=== PATIENT | male | born 1955 | race Caucasian/White ===

== ENCOUNTER 2020-04-23 12:39 | Inpatient (IN) | payer OTHER, MEDICARE ==
[~2020-04-23] VITALS: Ht 185.4 cm; Wt 140.3 kg
[2020-04-23 09:35] LABS: BASOPHILS PERCENT AUTO 1 % (0-2); EOSINOPHILS ABSOLUTE AUTO 0.37 K/mm3 (0.00-0.68); EOSINOPHILS PERCENT AUTO 4 % (0-6); Hematocrit 51.3 % (37.0-53.0); Hemoglobin 16.7 g/dL (13.5-17.5); IMMATURE GRAN ABSOLUTE AUTO 0.04 K/mm3 (0.00-0.10); IMMATURE GRAN PERCENT AUTO 0 % (0-1); LYMPHOCYTES PERCENT AUTO 18 % (21-46); MONOCYTES ABSOLUTE AUTO 1.18 K/mm3 (0.16-1.47); MONOCYTES PERCENT AUTO 11 % (4-13); Mean Corpuscular HGB 28.9 pg (26.0-34.0); Mean Corpuscular HGB Conc 32.6 g/dL (31.5-36.5); Mean Corpuscular Volume 89 fL (80-100); Mean Platelet Volume 9.4 fL (9.1-12.4); NEUTROPHILS ABSOLUTE AUTO 6.85 K/mm3 (1.96-9.15); NEUTROPHILS PERCENT AUTO 66 % (41-73); Platelet Count 351 K/mm3 (150-400); RDW Coefficient Variation 13.7 % (11.7-14.2); RDW Standard Deviation 44.3 fL (35.1-46.3); Red Blood Cell Count 5.78 M/mm3 (4.30-5.90); White Blood Cell Count 10.44 K/mm3 (4.00-11.30)
[2020-04-23 09:53] LABS: International Normalized Ratio 1.28; Prothrombin Time Results 13.5 Sec (9.7-11.5)
[2020-04-23 10:00] LABS: Albumin, Blood 4.2 g/dL (3.4-5.0); Albumin/Globulin Ratio 1.1 (0.8-1.8); Bilirubin, Total 0.7 mg/dL (0.1-1.0); Calcium, Blood 9.2 mg/dL (8.5-10.1); Creatinine, Blood 1.28 mg/dL (0.60-1.20); Globulin, Blood 3.8 g/dL (2.2-4.0)
[2020-04-23 10:39] LABS: Influenza A, PCR NEGATIVE (NEGATIVE); Influenza B, PCR NEGATIVE (NEGATIVE); Resp Syncytial Virus, PCR NEGATIVE (NEGATIVE); SARS-Cov-2 (COVID-19) PCR, MMC NEGATIVE (NEGATIVE)
[~2020-04-23 12:39] MED LIST: ALBU90OI INH; Crestor20 MG PO; DILTIAZEM 24HR240 M4 PO; HYDCHL25 PO; LEVSOD150 PO; OMEP20ER PO; SYMBICORT 16010.2 GM INH; TIOT18 INH; VITAMIN D31000 UNI1 PO; XARELTO20 MG PO
[2020-04-23 14:03] LABS: Magnesium, Blood 2.2 mg/dL (1.6-2.4); Phosphorus, Blood 3.2 mg/dL (2.5-4.9)
[2020-04-24 03:59] LABS: BASOPHILS ABSOLUTE AUTO 0.05 K/mm3 (0.00-0.23); BASOPHILS PERCENT AUTO 1 % (0-2); EOSINOPHILS ABSOLUTE AUTO 0.33 K/mm3 (0.00-0.68); EOSINOPHILS PERCENT AUTO 4 % (0-6); Hematocrit 46.2 % (37.0-53.0); Hemoglobin 15.2 g/dL (13.5-17.5); IMMATURE GRAN ABSOLUTE AUTO 0.02 K/mm3 (0.00-0.10); IMMATURE GRAN PERCENT AUTO 0 % (0-1); LYMPHOCYTES ABSOLUTE AUTO 1.46 K/mm3 (0.84-5.20); LYMPHOCYTES PERCENT AUTO 18 % (21-46); MONOCYTES ABSOLUTE AUTO 1.05 K/mm3 (0.16-1.47); MONOCYTES PERCENT AUTO 13 % (4-13); Mean Corpuscular HGB 29.2 pg (26.0-34.0); Mean Corpuscular HGB Conc 32.9 g/dL (31.5-36.5); Mean Corpuscular Volume 89 fL (80-100); Mean Platelet Volume 9.5 fL (9.1-12.4); NEUTROPHILS ABSOLUTE AUTO 5.28 K/mm3 (1.96-9.15); NEUTROPHILS PERCENT AUTO 65 % (41-73); Platelet Count 288 K/mm3 (150-400); RDW Coefficient Variation 13.7 % (11.7-14.2); RDW Standard Deviation 44.4 fL (35.1-46.3); Red Blood Cell Count 5.21 M/mm3 (4.30-5.90); White Blood Cell Count 8.19 K/mm3 (4.00-11.30)
[2020-04-24 04:15] LABS: Calcium, Blood 8.9 mg/dL (8.5-10.1); Creatinine, Blood 1.33 mg/dL (0.60-1.20)
[2020-04-24] MEDS ORDERED: DILTIAZEM 24HR240 M3 PO (11:41)
[2020-04-24] MEDS ORDERED: FLECAINIDE ACE150 MG PO (11:42)
[2020-06-23] MEDS ORDERED: METF500C PO (15:07)
== END 2020-04-24 13:40 | disposition home or self-care (01) | DRG 287 ==
LOC: PCU 12:39
PROVIDERS: Internal Medicine Cardiovascular Disease; ADMIT Internal Medicine
PROC: 5A2204Z Restoration of Cardiac Rhythm, Single (ICD-10-PCS; principal; 2020-04-23)
PROC: 4A023N7 Measurement of Cardiac Sampling and Pressure, Left Heart, Percutaneous Approach (ICD-10-PCS; 2020-04-23)
PROC: B2111ZZ Fluoroscopy of Multiple Coronary Arteries using Low Osmolar Contrast (ICD-10-PCS; 2020-04-23)
DX: I48.20 Chronic atrial fibrillation, unspecified (principal); J44.9 Chronic obstructive pulmonary disease, unspecified; I25.10 Atherosclerotic heart disease of native coronary artery without angina pectoris; E03.9 Hypothyroidism, unspecified; I10 Essential (primary) hypertension; E66.01 Morbid (severe) obesity due to excess calories; Z20.822 Contact with and (suspected) exposure to COVID-19; I47.2 Ventricular tachycardia; K21.9 Gastro-esophageal reflux disease without esophagitis; E78.5 Hyperlipidemia, unspecified; Z87.891 Personal history of nicotine dependence; Z79.01 Long term (current) use of anticoagulants
CPT/HCPCS: 0241U; 36415; 76937; 78451; 80048; 80053; 83735; 83880; 84100; 84484; 85025; 85347; 85610; 92960; 93017; 93246; 93308; 93458; 94640; 94660; 94664; 94760; 94762; 99152; 99153; A9270; A9500; C1769; C1894; J1644; J2250; J2785; J3010; J7030; Q9967

== ENCOUNTER 2020-06-24 05:58 | Inpatient (IN) | payer OTHER, MEDICARE ==
[~2020-06-24] VITALS: Ht 185.4 cm; Wt 136.2 kg
[~2020-06-24 05:58] MED LIST changes: +DILTIAZEM 24HR240 M3 PO; +FLECAINIDE ACE150 MG PO; +METF500C PO
--- NOTE | 2020-06-24 13:50 | NUR ---
PT ARRIVED IN THE UNIT POST PACER PLACEMENT FROM [facility], PT IS ALERT AND ORIENTED AT BASELINE, SBA FOR TRANSFERS. VITALS HRR AFIB WAS ON CARDIZEM GTT AT 5MG/HR HR RANGING UP TO 140'S, BP SYSTOLIC 130'S, SATS ABOVE 95% ON RA, AFEBRILE. LEFT UPPER CHEST INCISION SITE WITH PRESSURE DRESSING NO HEMATOMA OR BLEEDING NOTED. LEFT ARM SLING ON, PT COMPLIANT AND AWARE OF NOT USING LEFT ARM AND USE OF SLING. NO OTHER ISSUES AT THIS TIME, PT WAS STARTED ON CARDIZEM 180MG PO, PT HR NOW RANGING 80-110'S, PT DENIES CHEST PAIN/PRESSURE. PT RESTING IN BED CALL LIGHTS IN REACH WILL MONITOR
--- NOTE | 2020-06-25 06:00 | NUR ---
PER CARDIOLOGY GIVE PATIENT DILTIZEM 180MG PO EARLY, NOTED PATIENT IS OPENING THE CAPSULE AND TAKING HIS MEDICATION WITHOUT CAPSULE INTACT
--- NOTE | 2020-06-25 18:29 | NUR ---
SHIFT SUMMARY PATIENT REMAINED IN A FIB WITH HEART RATE IN THE 130s-140s AT START OF SHIFT. DR. MANRIQUEZ ADDED MULTAQ BID, PATIENT HR NOW IN 100S AT END OF SHIFT. PATIENT HAD MULTIPLE RUNS OF V-TACH T/O MORNING WITH THE LONGEST BEING FOR 12 BEATS PER ANALYTICAL LAB TECHNICIAN TECH. BY AFTERNOON PATIENT HAD 1 ADDITIONAL RUN OF V-TACH, THUS FREQUENCY DECREASED SIGNIFICANTLY THROUGH COURSE OF DAY. PATIENT DENIES CHEST PAIN/PRESSURE, COMPLAINS OF SORENESS ONLY AT L. CHEST WALL SURGICAL SITE. SLING IN PLACE, PATIENT IS ALERT AND ORIENTED AND ABLE TO AMBULATE INDEPENDENTLY TO BATHROOM. PATIENT ON ROOM AIR, OTHER THAN HR, VSS.
--- NOTE | 2020-06-26 04:08 | NUR ---
ENVIRONMENTAL FIELD TECHNICIAN DR BAILEY- CALLED PHYSICIAN DUE TO INCIDENCE OV VTACH. PT RECEIVED DOSE OF MULTAQ 400MG BID @2024. PT HAVING VTACH EPISODES RANGING ANYWHERE FROM 4 BEATS TO 12. IT WAS NOTICED THAT INCIDENCE OF VTACH HAD INCREASED FROM AROUND 1200. AT 321- PT HAD 30 SECOND RUN OF VTACH. PT UP TO BATHROOM AT THIS POINT, STATED FEELING SOB. EKG COMPLETED. ATTEMPTED TO COMPARE QTC WITH PREVIOUS EKGS. NONE FOUND IN CHART OR MUSE. IN PREVIOUS CARDIOLOGY NOTE IN CHART, IT WAS FOUND THAT PT'S PREVIOUS QTC HAD BEEN >500. THIS EKG SHOWED QTC OF 484. DR BAILEY NOTIFIED OF ALL THIS, NOTIFIED OF STABLE BP'S. PACEMAKER PLACEMENT ON 06/24, CURRENT EMAR, ETC. STATES TO DC MULTAQ AND START PT ON METOPROLOL SUCCINATE 50MG NOW AND THEN DAILY. ORDERS REPEATED, CONFIRMED, AND THEN PLACED IN EMAR. WILL GIVE METOPROLOL DOSE AND CONTINUE TO MONITOR.
--- NOTE | 2020-06-26 04:33 | NUR ---
SHIFT SUMMARY ALERT AND ORIENTED X4. BP STABLE. HR RANGING IN 120'S-170'S. STRADDLE BUGGY OPERATOR CONTACTED FOR ENLONGATION OF VTACH RUNS. SEE PRIOR NOTE BY SUZY CRUZ. STRADDLE BUGGY OPERATOR CHANGED CARDIAC MED SEE EMAR. PATIENT REPORTS INCREASING SOB UPON EXERTION. PATIENT DENIES CP OR CHEST PRESSURE. WILL CONTINUE TO MONITOR UNTIL END OF SHIFT.
--- NOTE | 2020-06-26 06:22 | NUR ---
RN STUDENT THIS RN HAS REVIEWED THE STUDENT RNS NOTES, ASSESMENTS, AND CHARTING AND AGREE WITH ALL.
--- NOTE | 2020-06-26 17:20 | NUR ---
SHIFT SUMMARY PATIENT HAD SEVERAL RUNS OF V-TACH THIS MORNING, INTERMITTENT PACER SPIKES ON TELEMETRY WITH UNDERLYING A FIB. PATIENT STARTED ON AMIODORONE PO TID THIS SHIFT, NO ADDITIONAL V-TACH NOTED THROUGH AFTERNOON/EVENING. PATIENT DENIED CHEST PAIN/PRESSURE T/O SHIFT, COMPLAINED OF SOME SORENESS AT SURGICAL SITE. SLING IN PLACE, NO DISCHARGE NOTED AT PACER SURGICAL SITE. PATIENT IS ALERT AND ORIENTED, ABLE TO AMBULATE INDEPENDENTLY IN ROOM, STEADY GAIT.
--- NOTE | 2020-06-26 19:20 | NUR ---
ASSUMED CARE RECEIVED BEDSIDE REPORT FROM [place], RN & STUDENT RN NAY; PT A&O X 4; SMILING & CONVERSING W/ STAFF; DENIES CHEST PAIN; BP CONTINUES TO BE ELEVATED; HR 100'S AFLUTTER ON TELE; ARM SLING IN PLACE; DRESSING C/D/I; SCD'S IN PLACE; CALL LIGHT AND BELONGINGS WITHIN REACH; BED IN LOWEST POSITION
--- NOTE | 2020-06-27 06:36 | NUR ---
SHIFT SUMMARY PT A&O X 4; VSS; HR MAINTAINED 100'S; NO EVENTS REPORTED BY GLUER MACHINE SETUP OPERATOR; PACER SITE C/D/I; ARM SLING IN PLACE; EDUCATION PROVIDED ON NOT USING LEFT ARM OR RAISING ARM; INDEPENDENT IN ROOM; CALLS APPROPRIATELY; C/O FEELINGS OF CONSTIPATION THIS AM, PT STATES NORMALLY DRINKS 2 CUPS OF COFFEE AND TAKES FIBER SUPPLEMENT; COFFEE BROUGHT TO PT PER REQUEST; SITTING AT BEDSIDE WATCHING TV W/ NO DISTRESS NOTED; CALL LIGHT IN REACH; BED IN LOWEST POSITION; WILL CONTINUE TO MONITOR CLOSELY UNTIL HAND OFF TO DAY SHIFT RN.
--- NOTE | 2020-06-27 18:42 | NUR ---
SHIFT SUMMARY NO ACUTE EVENTS THIS SHIFT, VSS. PATIENT ALERT AND ORIENTED, COOPERATIVE WITH CARE. L ARM SLING IN PLACE, NO DISCHARGE FROM PACER SURGICAL SIGHT NOTED, DRESSING IN PLACE. PATIENT IS ABLE TO AMBULATE INDEPENDENTLY IN ROOM, STEADY GAIT. PATIENT CONVERTED TO SINUS RYTHYM THIS SHIFT. PATIENT DENIES CHEST PAIN/PRESSURE.
--- NOTE | 2020-06-28 04:47 | NUR ---
SHIFT SUMMARY NO ACUTE CHANGES THIS SHIFT. VSS. REMAINS IN SR. DRESSING TO PACEMAKER SITE CDI. PT REMAINS IN SLING. UP TO BATHROOM MULTIPLE TIMES THIS SHIFT W/OUT CARDIAC EVENT. WCTM.
--- NOTE | 2020-06-28 08:10 | NUR ---
INITIAL ASSESSMENT PATIENT ALERT AND ORIENTED X 4, AFEBRILE. L ARM IN SLING SINCE PACEMAKER INSERTION. PATIENT DENIES PAIN OR DISCOMFORT. PATIENT INDEPENDENT IN ROOM. RESP WNL. PATIENT SATTING 90% AND GRETAER ON RA. PATIENT IN SR, HR 60S TO 70S. BP 163/96. DUAL CHAMBER PACEMAKER IN PLACE. DRESSING C/D/I. ABDOMEN MILDLY DISTENDED, FIRM, NONTENDER, WITH HYPERACTIVE BS NOTED. LAST BM DOCUMENTED ON 06/26. GOOD APPETITE. WNL. IV FLUSHED AND SALINE LOCKED. CALL LIGHT IN REACH. WILL CONTINUE TO MONITOR PATIENT FREQUENTLY THROUGHOUT SHIFT.
--- NOTE | 2020-06-28 11:56 | NUR ---
PATIENT AFEBRILE. PATIENT DENIES PAIN OR DISCOMFORT. HR IN THE 60S. SBP 130S TO 140S. NO OTHER ACUTE CHANGES TO NOTE ON AT THIS TIME. WILL CONTINUE TO MONITOR.
--- NOTE | 2020-06-28 16:12 | NUR ---
PATIENT AFEBRILE. HR IN THE 60S. SBP IN THE 130S. PATIENT GIVEN PRN TYLENOL FOR COMPLAINT OF 3/10 PAIN AT PACER SURGICAL SITE. NO OTHER CHANGES TO NOTE ON AT THIS TIME. WILL CONTINUE TO MONITOR.
--- NOTE | 2020-06-28 18:28 | NUR ---
SHIFT SUMMARY PATIENT REMAINED ALERT AND ORIENTED X 4, AFEBRILE. PATIENT GIVEN PRN TYLENOL OT THIS SHIFT FOR COMPLAINT OF PAIN AT PACEMAKER INSERTION SITE. PATIENT REMAINED INDEPENDENT IN ROOM. PATIENT REMAINED SATTING 90% AND GREATER ON RA. PATIENT REMAINED IN SR, HR 60S TO 70S. SBP 130S TO 160S. GI AND WNL. PATIENT HAD GOOD APPETITE. NO CHANGES TO SKIN NOTED. PATIENT HAD EKG THIS SHIFT. PATIENT TO BE NPO AT 0000 FOR PACEMAKER INTERROGATION IN MORNING AND POSSIBLY BACK TO TELEVISION PROGRAM DIRECTOR TO FIX ATRIAL LEAD. PATIENT HAS NO COMPLAINTS AT THIS TIME. BED LOW, CALL LIGHT IN REACH. REPORT WILL BE GIVEN TO ONCOMING WASH WORKER NURSE SHORTLY.
--- NOTE | 2020-06-28 21:15 | NUR ---
ASSUMED CARE OF PATIENT AT APPROXIMATELY 1910 FROM SHANNON Sanchez RN. PATIENT ALERT AND ORIENTED X4; INDEPENDENT TO BATHROOM. PATIENT HAS LEFT ARM SLING IN PLACE AFTER PACEMAKER PLACEMENT. PATIENT NPO AT MIDNIGHT FOR PACER INTERROGATION IN AM AND POSSIBLE PHOTOGRAPHY COLORIST. PATIENT DENIES PAIN, NUMBNESS, TINGLING, DIZZINESS AND NAUSEA. SR ON TELE; OXYGEN SATURATION ABOVE 90% ON ROOM AIR; CPAP AT NIGHT. PIV S/L.
--- NOTE | 2020-06-29 07:18 | NUR ---
PATIENT REPORTS HE DID NO SLEEP WELL. A FEW HOURS. DR. MANRIQUEZ BEDSIDE DOING INTERROGATION PACER. VSS. NO OTHER ACUTE CHANGES. REFUSED TO WEAR CPAP LAST NIGHT.
--- NOTE | 2020-06-29 10:00 | NUR ---
UPDATE PT TAKEN TO SUPERVISOR DRAPERY HANGING FOR PROCEDURE. WILL AWAIT RETURN.
--- NOTE | 2020-06-29 11:45 | NUR ---
UPDATE PT RETURNED FROM MYSQL DEVELOPER. VS STABLE. PT DENIES ANY PAIN. WOUND TO LEFT CHEST WALL WITH DRESSING C/D/I. LEFT ARM PLACED IN SLING. PT EDUCATED ON LEFT ARM RESTRICTIONS. WILL CONTINUE TO MONITOR CLOSELY.
--- NOTE | 2020-06-29 17:21 | NUR ---
SHIFT SUMMARY PT ALERT AND ORIENTED. VS REMAIN STABLE. HR PACED AT 60. O2 SATS REMAIN ABOVE 90% ON RA. PT DENIES ANY PAIN. WOUND TO LEFT CHEST WALL REMAINS C/D/I, NO BLEEDING OR HEMATOMA. LEFT ARM IN SLING. PLAN FOR PT TO STAY ONE MORE NIGHT FOR IV ANTIBIOTICS. PT INDEPENDENT IN ROOM. WILL CONTINUE TO MONITOR AND REPORT TO ONCOMING RN. CALL LIGHT IN REACH. PT CALLING APPROPRIATELY.
--- NOTE | 2020-06-30 00:56 | NUR ---
PATIENT IS ALERT AND ORIENTATED, SITTING UP IN CHAIR THIS EVENING, VITAL SIGNS ARE STABLE, PACER SITE IS INTACT NO SIGNS/SYMPTOMS OF INFECTION, SOME COMPLAINTS OF DISCOMFORT IN PACEMAKER INSERTION SITE RESOLVED EFFECTIVELY WITH TYLENOL, PATIENT CALLS APPROPRIATELY AND A STAND BY ASSIST.
[2020-06-30] MEDS ORDERED: AMIODARONE HCL400 M2 PO (10:23)
[2020-06-30] MEDS ORDERED: Amiodarone HCl200 MG PO (10:24)
[2020-06-30] MEDS ORDERED: CEPH500 PO (10:25)
--- NOTE | 2020-06-30 10:55 | NUR ---
PATIENT PROVIDED DISCHARGE INFORMATION REGARDING FOLLOW UP PLANS, POST-PACER SITE CARE AND MOVEMENT RESTRICTIONS, REASONS TO RETURN TO THE HOSPITAL, AND MEDICATION INFORMATION. PATIENT VERBALIZED UNDERSTANDING, NO SIGNS OF ACUTE DISTRESS. PATIENT DENIES CHEST PAIN, ALERT AND ORIENTED, INDEPENDENT IN ROOM, VSS.
== END 2020-06-30 11:12 | disposition home or self-care (01) | DRG 261 ==
LOC: MHTC 05:58 → PCU 08:24 → MHTC 08:24 → PCU 06-27 19:35 → MHTC 06-27 19:35 → SURS 06-27 19:35 → PCU 06-27 19:35 → SURS 06-27 19:36 → MHTC 06-27 19:36 → PCU 06-27 19:36 → MHTC 06-27 19:37 → PCU 06-27 19:37 → SURS 06-29 05:56 → MHTC 06-29 05:56 → PCU 06-29 09:32
PROVIDERS: ADMIT Internal Medicine Cardiovascular Disease
PROC: 4B02XSZ Measurement of Cardiac Pacemaker, External Approach (ICD-10-PCS; 2020-06-27)
PROC: 02WA3MZ Revision of Cardiac Lead in Heart, Percutaneous Approach (ICD-10-PCS; principal; 2020-06-29)
DX: T82.120A Displacement of cardiac electrode, initial encounter (principal); I48.92 Unspecified atrial flutter; Z68.41 Body mass index [BMI] 40.0-44.9, adult; I49.5 Sick sinus syndrome; I48.0 Paroxysmal atrial fibrillation; E66.01 Morbid (severe) obesity due to excess calories; I44.7 Left bundle-branch block, unspecified; J44.9 Chronic obstructive pulmonary disease, unspecified; E03.9 Hypothyroidism, unspecified; I25.10 Atherosclerotic heart disease of native coronary artery without angina pectoris; I12.9 Hypertensive chronic kidney disease with stage 1 through stage 4 chronic kidney disease, or unspecified chronic kidney disease; N18.9 Chronic kidney disease, unspecified; E78.5 Hyperlipidemia, unspecified; I51.89 Other ill-defined heart diseases; G47.33 Obstructive sleep apnea (adult) (pediatric); Z87.891 Personal history of nicotine dependence; Z79.899 Other long term (current) drug therapy; Y71.1 Therapeutic (nonsurgical) and rehabilitative cardiovascular devices associated with adverse incidents
CPT/HCPCS: 33208; 33218; 71045; 71046; 76937; 82947; 93005; 93010; 94640; 94660; 94762; 99152; 99153; A9270; C1781; C1785; C1894; C1898; J0690; J1644; J2250; J3010; J7030; J7040

== ENCOUNTER → 2022-02-04 | Outpatient (CLI) | payer MEDICARE ==
[~2022-02-04] MED LIST changes: +AMIODARONE HCL400 M2 PO; +Amiodarone HCl200 MG PO; +CEPH500 PO
[2022-02-04 11:17] LABS: BASOPHILS ABSOLUTE AUTO 0.05 K/mm3 (0.00-0.23); BASOPHILS PERCENT AUTO 1 % (0-2); EOSINOPHILS ABSOLUTE AUTO 0.14 K/mm3 (0.00-0.68); EOSINOPHILS PERCENT AUTO 2 % (0-6); Hematocrit 47.1 % (37.0-53.0); Hemoglobin 15.9 g/dL (13.5-17.5); IMMATURE GRAN ABSOLUTE AUTO 0.03 K/mm3 (0.00-0.10); IMMATURE GRAN PERCENT AUTO 1 % (0-1); LYMPHOCYTES PERCENT AUTO 10 % (21-46); MONOCYTES ABSOLUTE AUTO 1.01 K/mm3 (0.16-1.47); MONOCYTES PERCENT AUTO 16 % (4-13); Mean Corpuscular HGB 30.7 pg (26.0-34.0); Mean Corpuscular HGB Conc 33.8 g/dL (31.5-36.5); Mean Corpuscular Volume 91 fL (80-100); Mean Platelet Volume 9.7 fL (9.1-12.4); NEUTROPHILS ABSOLUTE AUTO 4.48 K/mm3 (1.96-9.15); NEUTROPHILS PERCENT AUTO 71 % (41-73); Platelet Count 273 K/mm3 (150-400); RDW Coefficient Variation 14.3 % (11.7-14.2); RDW Standard Deviation 47.8 fL (35.1-46.3); Red Blood Cell Count 5.18 M/mm3 (4.30-5.90); White Blood Cell Count 6.31 K/mm3 (4.00-11.30)
[2022-02-04 11:27] LABS: Bun/Creatinine Ratio 15.5 (12.0-20.0); Calcium, Blood 9.4 mg/dL (8.5-10.1); Creatinine, Blood 1.48 mg/dL (0.60-1.20); Potassium, Blood 3.6 mmol/L (3.5-5.5)
== END ==
LOC: LAB SHORT 11:12 → LAB 11:12
PROVIDERS: Physician Assistant Surgical
DX: R06.00 Dyspnea, unspecified (principal)
CPT/HCPCS: 80048; 84484; 85025